=== PATIENT | male | born 1950 | race African-American/Black ===

== ENCOUNTER 2020-08-07 14:41 | Observation (INO) | payer MEDICARE, SELFPAY ==
[2020-08-07] VITALS (10 sets, daily range): BP systolic 132–170; BP diastolic 73–95; PULSE 53–77; RESP 16–20; TEMP 36.4–36.7; O2SAT 97–100; BMI 33.7
--- NOTE | ~2020-08-07 | XR_ITS ---
XR chest 2V DATE: 08/07/2020 15:55 INDICATION: Midsternal chest pain. Hypertension. TECHNIQUE: PA and lateral views COMPARISON: None FINDINGS: Approximately 12 mm nodular density overlying right mid lung, situated within the anterior segment of the right upper lobe. Comparison with prior chest radiograph dating back to July or more ye ars is recommended; if not available, CT thorax is recommended. There is mild elevation right leaf of diaphragm and mild atelectasis or infiltrate at both lung bases , right greater than left. Cardiomegaly. Aortic calcification and mild tortuosity. No hilar or mediastinal enlargement. No pleural effusion or pulmonary vascular congestion or pneumothorax. Diffuse osteopenia. IMPRESSION: 12 mm nodular density of anterior segment right upper lobe; recommend prior chest radiogr aphic comparison dating back 2 or more years. If not available, CT thorax is recommended. Mild elevation right hemidiaphragm and mild infiltrate or atelectasis at the lung bases Cardiomegaly Osteopenia Reviewed, dictated and finalized at location [facility]. IMPRESSION: 12 mm nodular density of anterior segment right upper lobe; recomme nd prior chest radiographic comparison dating back 2 or more years. If not avai lable, CT thorax is recommended. Mild elevation right hemidiaphragm and mild infiltrate or atelectasis at the karely ng bases Cardiomegaly Osteopenia
--- NOTE | ~2020-08-07 | CT_ITS ---
EXAMINATION: CTA chest PE protocol DATE: 08/07/2020 17:50 INDICATION: Chest pain TECHNIQUE: Computed tomography angiography (CTA) of the chest was performed with 100 mL Omnipaque-350 intravenous contrast timed to evaluate the pulmonary arteries. Coronal maximum intensity projection 3D-reconstructions were created by the technologist. Automated exposure control and iterative reconst ruction technique were employed. Exam dose: 867.60 mGy-cm total exam DLP. COMPARISON: 08/07/2020 PA and lateral chest FINDINGS: There is an moderate opacification the pulmonary arteries and no evidence of pulmonary embo lism. No thoracic aortic aneurysm or dissection. Normal heart size. No pericardial or pleural effusion. 1.4 cm calcified anterior segment right upper lobe pulmonary granuloma, corresponding to the nodular density noted on 08/07/2020 chest Mild primarily dependent lower lobe atelectasis is noted bilaterally. Normal morphology of the adrenal glands. Small sliding hiatal hernia. Included skeletal structures are unremarkable other than degenerative change of thoracic and lumbar s pine. IMPRESSION: 1.4 cm calcified pulmonary granuloma of anterior segment right upper lobe No evidence of pulmonary embolism Reviewed, dictated and finalized at [facility]. Reviewed, dictated and finalized at location [facility]. IMPRESSION: 1.4 cm calcified pulmonary granuloma of anterior segment right u pper lobe No evidence of pulmonary embolism
--- NOTE | 2020-08-07 14:48 | ECG_ITS ---
Measurements Intervals [place] Rate: 68 P: 3 ME: 185 QRS: 38 QRSD: 107 T: 44 QT: 405 QTc: 433 Interpretive Statements SINUS RHYTHM VOLTAGE CRITERIA FOR LVH INFERIOR INFARCT, AGE INDETERMINATE ABNORMAL ECG Electronically Signed On 08-07-2020 18:48:01 CDT by Lito Rubi D.O.
[2020-08-07 15:03] LABS: Basophils Absolute Auto 0.1 K/mm3 (0.0-0.1); Basophils Percent Auto 1.6 % (0.2-1.2); Eosinophils Absolute Auto 0.5 K/mm3 (0-0.3); Eosinophils Percent Auto 6.4 % (0-4.4); Hematocrit 43.1 % (42.0-52.0); Hemoglobin 12.7 g/dL (14.0-18.0); Immature Granulocyte Absolute 0.03 K/mm3 (0.00-0.031); Immature Granulocyte Percent A 0.4 % (0-0.5); Lymphocytes Absolute Auto 1.99 K/mm3 (0.9-3.2); Lymphocytes Percent Auto 28.3 % (18.3-44.2); Mean Corpuscular HGB Conc 29.5 g/dl (32-36); Mean Corpuscular Hemoglobin 19.5 pg (26-34); Mean Corpuscular Volume 66.1 fl (80-100); Monocytes Absolute Auto 0.8 K/mm3 (0.1-0.6); Neutrophils Absolute Auto 3.7 K/mm3 (1.3-6.7); Neutrophils Percent Auto 52.3 % (45.5-73.1); Platelet Count Result 515 k/mm3 (150-375); Red Blood Count 6.52 M/mm3 (4.6-6.20); Red Cell Distribution Width 20.7 % (11.5-14.5)
[2020-08-07 15:13] LABS: Prothrombin Time 14.2 Seconds (11.1-14.7)
[2020-08-07 15:14] LABS: Partial Thromboplastin Time 30.3 SECONDS (22.3-36.8)
[2020-08-07 15:15] LABS: Anion Gap 6 mmol/L (8-16); Blood Urea Nitrogen 17 mg/dL (9-20); Calcium 8.9 mg/dL (8.4-10.2); Carbon Dioxide 22 mmol/L (22-30); Chloride 114 mmol/L (98-107); Estimated CRCL calculation 83 ml/min; Estimated Glomerular Filt Rate > 60; Glucose 113 mg/dL (75-110); Potassium 4.1 mmol/L (3.4-5.0); Sodium 142 mmol/L (137-145)
[2020-08-07 15:24] LABS: Burr Cells 1+ (NORMAL); Ovalocytes 1+ (NORMAL); Platelet Estimate Adequate (Adequate)
[2020-08-07 15:26] LABS: Troponin I < 0.012 ng/mL (0.000-0.034)
[2020-08-07] MEDS: ASPIRIN 81 MG CHEWABLE TABLET 324 MG PO (16:24)
--- NOTE | 2020-08-07 16:24 | ED.CHESTPAIN ---
HPI - Chest Pain General Chief Complaint: Chest Pain Stated Complaint: chest pressure Time Seen by Provider: 08/07/20 16:08 Source: patient and RN notes reviewed Mode of arrival: ambulatory Limitations: no limitations History of Present Illness HPI narrative: This is a 69 year old male with history of hypertension, hyperlipidemia and peripheral vascula disease who presents for evaluation of chest pressure. He states he developed sudden onset chest pressure walking out of the gas station at around 2 hours ago. He states this pain does not radiate. It has been constant and it is associated with dizziness and intermittent shortness of breath. At his most severe intensity his pain is rated 9/10 , but it is currently 2/10. He denies nausea, vomiting, fever, cough, or diaphoresis. He denies recent history of exertional pain or shortness of breath. He denies heart disease . He had a stress tested 10 years ago that he believes was negative. Related Data Home Medications Medication Instructions Recorded Confirmed aspirin 325 mg PO DAILY 08/07/20 08/07/20 atorvastatin 20 mg PO DAILY 08/07/20 08/07/20 elderberry fruit [Elderberry] 200 mg PO DAILY 08/07/20 08/07/20 lisinopril 10 mg PO DAILY 08/07/20 08/07/20 omeprazole 20 mg PO DAILY 08/07/20 08/07/20 prasugrel 10 mg PO DAILY 08/07/20 08/07/20 psyllium husk [Metamucil] 60 g PO DAILY 08/07/20 08/07/20 Allergies Allergy/AdvReac Type Severity Reaction Status Date / Time clopidogrel [From Plavix] Allergy Hives Verified 08/07/20 14:56 ciprofloxacin AdvReac Difficulty Verified 08/07/20 16:13 Breathing metronidazole AdvReac Difficulty Verified 08/07/20 16:13 Breathing Review of Systems Review of Systems: All systems reviewed & are unremarkable except as noted in HPI and below Constitutional: Constitutional: Denies chills and Denies fever(s) Cardiovascular: Cardiovascular: Reports chest pain, Denies rapid heart rate and Reports radiating jaw, neck or arm pain Respiratory: Respiratory: Denies cough and Reports dyspnea Gastrointestinal: Gastrointestinal: Denies abdominal pain, Denies diarrhea, Denies nausea and Denies vomiting Genitourinary: Genitourinary: Denies hematuria Musculoskeletal: Musculoskeletal: Denies back pain [facility] Past Medical History Medical History (Updated 08/08/20 @ 00:58 by Shayy Grimaldo MD) Hyperlipidemia Hypertension Peripheral vascular disease Surgical History Surgical History (Updated 08/07/20 @ 16:25 by Shayy Grimaldo MD) H/O repair of rotator cuff Family History Family History (Updated 08/07/20 @ 21:27 by Elizabeth Young, RN) Mother Cancer Father Heart attack Father Diabetes mellitus Grandparent Cancer Social History Social History (Updated 08/07/20 @ 16:26 by Shayy Grimaldo MD) Smoking status: Never smoker Alcohol intake: never Substance use: never Gender identity (if verbalized by the patient): Male Spiritual care concerns: No Exam Narrative: Exam Narrative: GENERAL: Well-appearing, well-nourished, and in no acute distress. HEAD: Normocephalic, atraumatic EYES: PERRLA and EOMI, conjunctiva clear without discharge THROAT:Mucous membranes moist, Oropharynx normal without erythema, exudate, peritonsillar swelling or fluctuance NECK: Supple, without lymphadenopathy or mass RESPIRATORY: No respiratory distress, Airway patent, Respirations non-labored, Clear to auscultation without rales, rhonchi or wheeze HEART: Regular rate and rhythm. No murmur heard. Normal peripheral pulses. ABDOMEN: Soft, nontender, nondistended, normal active bowel sounds. No masses. No rebound or guarding, No organomegaly. EXTREMITIES: No edema, normal strength with full range of motion. SKIN: Warm, dry, normal color without rash NEURO: Alert and oriented x3. CN 2-12 grossly intact. No focal deficits. PSYCH: Normal mood and affect. Course Reevaluation(s) Reevaluation #1: Patient reported th
[2020-08-07] MEDS: NITROGLYCERIN SL 0.4 MG TABLET SUBLINGUAL (17:09)
[2020-08-07] MEDS: ONDANSETRON INJ 4 MG/2 ML VIAL IV PUSH (17:44)
[2020-08-07 18:25] LABS: Troponin I < 0.012 ng/mL (0.000-0.034)
--- NOTE | 2020-08-07 21:29 | ADMGEN ---
This patient, Con Gonsalves, was admitted to IMU Room 204-01. Patient/family oriented to hospital policies and general routines including ID bracelet, bed and alarms, visiting hours, pain management, procedures, bathroom and other care routines, personal items, smoking policy, room service/diet, and visiting hours. Information on how to activate the Rapid Response Team has been discussed. Patient/Family are encouraged to report perceived risks to care and to ask questions if they do not understand what they are told or what they should do. Marco A GRAY approc [id number]
[2020-08-07 21:53] LABS: Troponin I 0.072 ng/mL (0.000-0.034)
[2020-08-08] VITALS (21 sets, daily range): BP systolic 119–164; BP diastolic 74–93; PULSE 51–67; RESP 14–20; TEMP 36.2–36.6; O2SAT 95–99
--- NOTE | 2020-08-08 | ECHO_ITS ---
Patient Info Name: Con Gonsalves Age: 69 years : 1950 Gender: Male Ht: 75 in Wt: 270 lbs BSA: 2.58 m2 HR: 56 bpm BP: 139 / 85 mmHg Technical Quality: Good Exam Date: 08/08/2020 10:43 AM Exam Location: [facility] Patient Status: Inpatient Admit Date: 08/07/2020 Staff Ordering Physician: Natividad Mosley MD Quality Assurance Coach: Calvin Hill, CHAPARRITA, RT Attending Provider: Nhan Tamez MD Referring Physician: Dimitri COOPER; Exam Type: CA echo doppler color flow Study Info Indications R07.9 - Chest pain, unspecified Complete two-dimensional, color flow and Doppler transthoracic echocardiogram is performed. Summary 1. Complete two-dimensional, color flow and Doppler transthoracic echocardiogram is performed. 2. LV size is at upper limits of normal; mild LVH, normal overall LV systolic function, ejection fraction about 55%. Normal diastolic function. Normal valve structure without any significant abnormality on the Doppler. Unable to assess RVSP due to inadequate TR jet velocity. Sinus rhythm. Left Ventricle Left ventricular chamber dimension is normal. Left ventricular systolic function is normal, estimated at 55-60%. There is mildly increased left ventricular wall thickness. The left ventricular diastolic function is normal. Right Ventricle Right ventricular chamber dimension is normal. Right ventricular systolic function is normal. Left Atria Left atrial chamber dimension is normal. Right Atria Right atrial chamber dimension is normal. Aortic Valve The aortic valve is normal. There is no aortic valve stenosis. Pulmonic Valve The pulmonic valve is not well visualized. Mitral Valve The mitral valve has normal leaflets. Tricuspid Valve The tricuspid valve leaflets are normal. There is trace tricuspid valve regurgitation. Pericardium/Pleural The pericardium appears normal. Left Ventricular Outflow Tract Name Value Normal LVOT 2D LVOT Diameter 2.3 cm LVOT Doppler LVOT Peak Gradient 4 mmHg LVOT Mean Gradient 2 mmHg LVOT VTI 20 cm LVOT VTI/AV VTI Ratio 0.8 LVOT Stroke Volume 81 ml LVOT CO 5.0 l/min LVOT CI 1.9 l/min/m2 Mitral Valve Name Value Normal MV Doppler MV Decel [place] 309 cm/s2 MV PHT 66 ms MV Area (PHT) 3.4 cm2 4.0-5.0 MV Diastolic Function MV E Peak Velocity 70 cm/s MV A Peak Velocity 57 cm/s MV E/A 1.2 MV Decel Time
--- NOTE | 2020-08-08 00:49 | PM.IMHP ---
H&P: HPI History of Present Illness Date/Time: 08/08/20 00:49 Chief Complaint: Chest pain Narrative: This is a 69-year-old male with past medical history significant for hypertension, left lower extremity graft, patient is driving back to [place] from [place] when he had sudden onset of substernal chest pain is stated that was like someone sitting on his chest nonradiating he denied any diaphoresis dizziness syncope near-syncope nausea vomiting vision changes shortness of breath cough or palpitations with it. Patient decided to continue driving thought that he would pass however patient got worse and he decided to come to the emergency room. At the time of my visit patient denied any pain S states that pain lasted for roughly 1 hour since it was started till he got nitroglycerin 0.4 mg sublingual. Preliminary workup was essentially nonrevealing a CTA of the chest did not show acute pulmonary embolism. Patient CBC is significant for a hemoglobin of 12 an MCV of 60. Patient denies any other issues he has been his usual state of health. Patient has been placed on observation. Review of Systems Review of Systems: Narrative: Patient presented to the emergency room after he has sudden onset of retrosternal chest pain Constitutional: Constitutional: Denies chills, Denies fatigue, Denies fever(s), Denies lethargy, Denies malaise and Denies weakness ENT: Denies nasal congestion, Denies nasal discharge and Denies nasal obstruction Cardiovascular: Cardiovascular: Reports chest pain, Denies irregular heart rhythm, Denies claudication, Denies lightheadedness, Denies radiating jaw, neck or arm pain, Denies palpitations, Denies dyspnea, Denies dyspnea on exertion and Denies orthopnea Respiratory: Respiratory: Denies cough, Denies dyspnea and Denies wheezing Gastrointestinal: Gastrointestinal: Denies dyspepsia, Denies nausea and Denies vomiting Genitourinary: Genitourinary: Reports no additional male genitourinary complaints Musculoskeletal: Musculoskeletal: Denies back pain, Denies arthralgias, Denies joint swelling and Denies muscle weakness Integumentary/Breasts: Skin/Breast: Denies rash Neurologic: Denies focal weakness and Denies Sensory deficit (Neuro) Psychiatric: Psychiatric: Denies no additional psychiatric complaints Endocrine: Endocrine: Denies no additional endocrine complaints Hematologic/Lymphatic: Hematologic/Lymphatic: Denies no additional hematologic/lymphatic complaints Allergic/Immunologic: Allergic/Immunologic: Denies no additional allergic/immunologic complaints [facility] Past Medical History Medical History (Updated 08/08/20 @ 01:02 by Natividad Mosley MD) Hyperlipidemia Hypertension Peripheral vascular disease Surgical History Surgical History (Updated 08/07/20 @ 16:25 by Shayy Grimaldo MD) H/O repair of rotator cuff Family History Family History (Updated 08/07/20 @ 21:27 by Elizabeth Young RN) Mother Cancer Father Heart attack Father Diabetes mellitus Grandparent Cancer Social History Social History (Updated 08/07/20 @ 16:26 by Shayy Grimaldo MD) Smoking status: Never smoker Alcohol intake: never Substance use: never Gender identity (if verbalized by the patient): Male Spiritual care concerns: No Meds Home Medications and Allergies Home Medications Medication Instructions Recorded Confirmed Type aspirin 325 mg PO DAILY 08/07/20 08/07/20 History atorvastatin 20 mg PO DAILY 08/07/20 08/07/20 History elderberry fruit [Elderberry] 200 mg PO DAILY 08/07/20 08/07/20 History lisinopril 10 mg PO DAILY 08/07/20 08/07/20 History omeprazole 20 mg PO DAILY 08/07/20 08/07/20 History prasugrel 10 mg PO DAILY 08/07/20 08/07/20 History psyllium husk [Metamucil] 60 g PO DAILY 08/07/20 08/07/20 History Allergies Allergy/AdvReac Type Severity Reaction Status Date / Time clopidogrel [From Plavix] Allergy Hives Verified 08/07/20 14:56 ciprofloxacin AdvReac Difficulty Verif
[2020-08-08] MEDS: ASPIRIN 81 MG CHEWABLE TABLET PO (08:50)
[2020-08-08] MEDS: PANTOPRAZOLE 40 MG TABLET PO (08:50)
[2020-08-08] MEDS: lisinopriL 10 MG TABLET PO (08:50)
[2020-08-08] MEDS: PRASUGREL HCL 10 MG TABLET PO (08:50)
[2020-08-08] MEDS: ATORVASTATIN 20 MG TABLET PO (08:50)
--- NOTE | 2020-08-08 09:25 | PM.CNCAR ---
Assessment and Plan Assessment and plan (1) Elevated troponin: Code(s): R77.8 - Other specified abnormalities of plasma proteins Status: Acute Assessment and Plan: 69-year-old male with hypertension, dyslipidemia; history of left lower extremity sports related injuries status post left lower extremity vascular bypass surgery. patient presented to [facility] with complaints of chest pain. His EKG showed sinus rhythm, voltage criteria for LVH, no acute ST segment abnormality. First 2 sets of troponins were negative, 3rd set was minimally elevated. After discussing further diagnostic options, patient opted coronary angiogram to rule out significant obstructive CAD. 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 LVEF normal on surface echocardiogram. No intervention was deemed necessary at this time . 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 - Patient has been on prasugrel due to his vascular history ( reports allergy to clopidogrel) . At this time, continue prasugrel 10 mg daily. Add aspirin 81 mg p.o. daily . 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 b.i.d. Add beta-joe , and continue statin. Target LDL less than 70. 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 (2) Chest pain: Code(s): R07.9 - Chest pain, unspecified Status: Acute (3) HTN (hypertension): Code(s): I10 - Essential (primary) hypertension Status: Acute Assessment and Plan: Optimal blood pressure control. Target blood pressure less than 130/80 mmHg. History of Present Illness History of Present Illness Consult date/time: 08/08/20 09:25 Date of consult: 08/08/2020 Reason for consult: Chest pain Requesting physician:MD Re Chief complaint: Chest pain HPI: 69-year-old male with hypertension, dyslipidemia; history of left lower extremity sports related injuries status post left lower extremity vascular bypass surgery. Patient presented to [facility] on 08/07/2020 with complaints of chest pain. Patient lives in [place], [place]. He states that he was visiting the local area along with his . He was at a gas station, and it when he was walking out of the restroom, he felt substernal chest discomfort which was pressure-like and occasionally sharp in nature. The pain was not radiating. He had mild dizziness. He denied any associated symptoms of palpitations, shortness of breath, syncope. He was brought to the [facility] ER by his . Patient denies any prior history of clinical AR, angina, heart failure or any arrhythmias. He states that his blood pressure is usually well controlled. EKG on my personal evaluation showed sinus rhythm, voltage criteria for LVH, possible inferior infarct-age undetermined. First two sets of troponins are negative, 3rd set is minimally elevated at 0.072. Chest x-ray showed 12 mm nodular density of anterior segment right upper lobe; mild elevation right hemidiaphragm and mild infiltrate or atelectasis at the lung bases Cardiomegaly, Osteopenia. CT chest showed 1.4 cm calcified pulmonary granuloma of anterior segment right upper lobe; no evidence of pulmonary embolism. Reason For Visit: chest pain, hypertension Review of Systems Review of Systems: Narrative: General: Negative for fever, chills, fatigue Psychological: Negative for anxiety, depression Ophthalmic: negative for loss of vision ENT: Negative for epistaxis, headaches Allergy and immunology: Negative for hives, nasal congestion Hematologic and lymphatic: Negative for overt bleeding problems Endocrine: N
--- NOTE | 2020-08-08 11:41 | WPDMODSED ---
Moderate Sedation Note-Pt Data Patient Data Allergies Allergy/AdvReac Type Severity Reaction Status Date / Time clopidogrel [From Plavix] Allergy Hives Verified 08/07/20 14:56 ciprofloxacin AdvReac Difficulty Verified 08/07/20 16:13 Breathing metronidazole AdvReac Difficulty Verified 08/07/20 16:13 Breathing Home Medications Medication Instructions Recorded Confirmed Type aspirin 325 mg PO DAILY 08/07/20 08/07/20 History atorvastatin 20 mg PO DAILY 08/07/20 08/07/20 History elderberry fruit [Elderberry] 200 mg PO DAILY 08/07/20 08/07/20 History lisinopril 10 mg PO DAILY 08/07/20 08/07/20 History omeprazole 20 mg PO DAILY 08/07/20 08/07/20 History prasugrel 10 mg PO DAILY 08/07/20 08/07/20 History psyllium husk [Metamucil] 60 g PO DAILY 08/07/20 08/07/20 History Current Medications: Active Medications Aspirin (Aspirin 81 Mg Chewable Tablet) 81 mg PO DAILY@0800 [facility] Last Admin: 08/08/20 08:50 Dose: 81 mg Documented by: Atorvastatin Calcium (Atorvastatin 20 Mg Tablet) 20 mg PO DAILY [facility] Last Admin: 08/08/20 08:50 Dose: 20 mg Documented by: Acetaminophen (Ofirmev 1,000 Mg Ivpb) 1,000 mg in 100 mls @ 400 mls/hr IVPB Q6H PRN PRN Reason: Mild Pain (1-3) or Fever Stop: 08/08/20 18:36 Lisinopril (Lisinopril 10 Mg Tablet) 10 mg PO DAILY [facility] Last Admin: 08/08/20 08:50 Dose: 10 mg Documented by: (Elderberry Fruit (200 Mg Capsule)) 1 each XX DAILY [facility] Stop: 09/07/20 09:01 Ondansetron HCl (Ondansetron Inj 4 Mg/2 Ml Vial) 4 mg IV PUSH Q4H PRN PRN Reason: Nausea Pantoprazole Sodium (Pantoprazole 40 Mg Tablet) 40 mg PO QAM [facility] Last Admin: 08/08/20 08:50 Dose: 40 mg Documented by: Prasugrel (Prasugrel Hcl 10 Mg Tablet) 10 mg PO DAILY [facility] Last Admin: 08/08/20 08:50 Dose: 10 mg Documented by: Sedation/Anesthesia: No previous sedation/anesthesia problems (including family history). [facility] Past Medical History Medical History Hyperlipidemia Hypertension Peripheral vascular disease Surgical History Surgical History H/O repair of rotator cuff Family History Family History Mother Cancer Father Heart attack Father Diabetes mellitus Grandparent Cancer Social History Social History Smoking status: Never smoker Alcohol intake: never Substance use: never Gender identity (if verbalized by the patient): Male Spiritual care concerns: No Mod Sed Physical Exam Physical Exam Pre Procedural Exam: Normal: Airway Hours since solid foods: 10 Hours since liquid intake: 10 Internal Medicine - PN: Obj Da Vital Signs Vital Signs: Vital Signs - 24 hr 08/07/20 14:53 08/07/20 16:09 08/07/20 16:29 Temperature 36.7 C Pulse Rate 75 66 67 Respiratory Rate 17 17 Blood Pressure 170/88 H 164/95 H Pulse Oximetry 97 97 08/07/20 17:29 08/07/20 18:23 08/07/20 19:35 Temperature Pulse Rate 77 77 65 Respiratory Rate 20 18 18 Blood Pressure 132/81 141/76 H 144/89 H Pulse Oximetry 98 100 98 08/07/20 21:09 08/07/20 21:23 08/07/20 22:00 Temperature 36.7 C Pulse Rate 66 56 L 53 L Respiratory Rate 16 20 Blood Pressure 150/85 H 164/73 H Pulse Oximetry 99 97 08/07/20 23:31 08/08/20 00:00 08/08/20 02:00 Temperature 36.4 C Pulse Rate 58 L 62 59 L Respiratory Rate 18 Blood Pressure 139/93 H Pulse Oximetry 99 08/08/20 04:00 08/08/20 06:00 08/08/20 08:00 Temperature 36.4 C 36.6 C Pulse Rate 62 59 L 59 L Respiratory Rate 20 14 Blood Pressure 139/85 141/84 H Pulse Oximetry 97 98 08/08/20 10:00 08/08/20 11:18 Temperature 36.6 C Pulse Rate 62 58 L Respiratory Rate 16 Blood Pressure 143/74 H Pulse Oximetry 99 Intake/Output Intake/Output: Intake & Output 08/05/20 08/06/20 08/07/20 08/08/20 23:59 23:59 23:59 23:59 Intake Total
--- NOTE | 2020-08-08 12:30 | WPDCARDPROC ---
Cardiac Cath Procedure Note Date of procedure:: 08/08/20 Performing physician:: Darrick Olivarez MD Procedure Procedure note:: LEFT HEART CATHETERIZATION AND CORONARY ANGIOGRAM REPORT DATE OF PROCEDURE: 08/08/2020 INDICATION FOR PROCEDURE: chest pain, minimal troponin elevation BRIEF CLINICAL HISTORY: 69-year-old male with hypertension, dyslipidemia; history of left lower extremity sports related injuries status post left lower extremity vascular bypass surgery. Patient presented to [facility] on 08/07/2020 with complaints of chest pain. Patient lives in [place], [place]. He states that he was visiting the local area along with his . He was at a gas station, and it when he was walking out of the restroom, he felt substernal chest discomfort which was pressure-like and occasionally sharp in nature. The pain was not radiating. He had mild dizziness. He denied any associated symptoms of palpitations, shortness of breath, syncope. He was brought to the [facility] ER by his . Patient denies any prior history of clinical PA, angina, heart failure or any arrhythmias. He states that his blood pressure is usually well controlled. EKG showed sinus rhythm, voltage criteria for LVH, possible inferior infarct-age undetermined. First two sets of troponins are negative, 3rd set is minimally elevated at 0.072. Chest x-ray showed 12 mm nodular density of anterior segment right upper lobe; mild elevation right hemidiaphragm and mild infiltrate or atelectasis at the lung bases Cardiomegaly, Osteopenia. CT chest showed 1.4 cm calcified pulmonary granuloma of anterior segment right upper lobe; no evidence of pulmonary embolism. After discussing further diagnostic options, patient opted coronary angiogram to rule out significant obstructive CAD. Benefits and risks of the procedure were discussed with the patient in depth, and informed consent was obtained prior to the procedure. Risks of the procedure include but are not limited to vascular complications including groin hematoma, retroperitoneal bleed, vessel perforation; periprocedural PA, cardiac arrhythmias, stroke, contrast induced nephropathy, and . After discussing all the benefits, risks and alternatives, patient was willing to proceed with the procedure. PROCEDURES PERFORMED: 1. Selective left and right coronary angiogram 2. Moderate sedation-CPT code 57623 MODERATE SEDATION: Midazolam2 mg; fentanyl 50 mcg; Start time 1144 , Stop time 1205 ; Total [id number] time 21 minutes; Melba Rines, RN was trained observer for moderate sedation. ACCESS SITE: Right radial artery PROCEDURE NOTE: After obtaining informed consent, patient was brought to catheterization lab and prepped and draped in a usual sterile manner. After local anesthesia with lidocaine, right radial artery access was taken with micropuncture needle followed by insertion of a 5 Croatian sheath. Selective left and right coronary angiogram was performed using 5 Croatian Marina catheter. Orthogonal views were taken. Left ventriculogram was not performed. LVEF is normal on surface echocardiogram. After completion of procedure, TR band was applied for local hemostasis. Patient tolerated procedure well without any immediate procedure related complications. FINDINGS: LEFT MAIN CORONARY: The left main coronary is a large caliber, short vessel, no significant focal stenosis seen. The vessel trifurcates into LAD, ramus intermedius and left circumflex branches. LEFT ANTERIOR DESCENDING ARTERY: The LAD is a large caliber vessel in the proximal segment with aneurysmal segment in the lower part of the proximal segment; becomes tortuous in the mid segment, tapers distally and reaches LV apex. Major diagonal branch is a medium-sized vessel with 30-50% diffuse disease in the proximal segment. RAMUS INTERMEDIUS: The ramus intermedius is a medium caliber vessel with slightly hazy, eccentric about 50% stenosis in t
--- NOTE | 2020-08-08 15:15 | SUR.PHASEII ---
Pt transported back to IMU via wheelchair. Pt states the pain in right wrist is much improved to minimal pain or discomfort. Armboard in place to right arm, reviewed instructions of keeping the armboard in place for 24 hours as a reminder not to use it. When patient sat at side of bed to get into wheelchair - rash noted to be present on back. On further investigation, started to notice rash on hairline on top of head and chest. Pt denied any problems breathing or SOB, but did state he has had allergic reactions in the past after having CT scan - and was successfully treated with prednisone. I reinforced the importance of always informing the hospital or doctor of the reaction to contrast. Updated report given to Jose IMU RN - we accessed the rash present and she planned to contact the DR. at bedside.
[2020-08-08] MEDS: SODIUM CHLORIDE 0.9% IV 1,000 ML 125 ML IV CONT (15:32)
[2020-08-08] MEDS: METOPROLOL SUCCINATE EXT REL 25 MG TABCR PO (15:48)
[2020-08-08] MEDS: diphenhydrAMINE HCl CAP 25 MG CAPSULE 50 MG PO (15:49)
--- NOTE | 2020-08-08 16:58 | PM.DS ---
DS: Admitting Diagnosis Admitting Diagnosis Admitting Diagnosis: Chief Complaint: Chest pain DS: Discharge Diagnosis Discharge Diagnosis (1) Chest pain: Code(s): R07.9 - Chest pain, unspecified Status: Acute Assessment and Plan: Patient has been placed in observation Will do serial troponins EKG reviewed Supportive care A stress test in a.m. (2) HTN (hypertension): Code(s): I10 - Essential (primary) hypertension Status: Acute Assessment and Plan: Restart home meds Continue to monitor (3) Peripheral vascular disease: Code(s): I73.9 - Peripheral vascular disease, unspecified Status: Inactive Assessment and Plan: Patient is states that as a result of trauma to his left knee he was left with scarring tissue Dr. compromise blood flow to the foot patient has had two grafts performed Stable Continue to monitor DS: Summary Hospital Course Reason for hospitalization: Chief Complaint: Chest pain Narrative: This is a 69-year-old male with past medical history significant for hypertension, left lower extremity graft, patient is driving back to [place] from [place] when he had sudden onset of substernal chest pain is stated that was like someone sitting on his chest nonradiating he denied any diaphoresis dizziness syncope near-syncope nausea vomiting vision changes shortness of breath cough or palpitations with it. Patient decided to continue driving thought that he would pass however patient got worse and he decided to come to the emergency room. At the time of my visit patient denied any pain S states that pain lasted for roughly 1 hour since it was started till he got nitroglycerin 0.4 mg sublingual. Preliminary workup was essentially nonrevealing a CTA of the chest did not show acute pulmonary embolism. Patient CBC is significant for a hemoglobin of 12 an MCV of 60. Patient denies any other issues he has been his usual state of health. Patient has been placed on observation. 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 Time spent preparing discharge summary, discharge medications, discussing discharge planning with onsite case manager and patient is 35 minutes. Exam Narrative: Exam Narrative: Patient is comfortable, NAD HEENT: eyes are clear and none icteric LUNGS:CTA HEART: RR S1S2 ABD: BS+, Soft and nontender Lower extremities: no edema SKIN: nonjaundiced Neuro: grossly intact. DS: Data Data Completed and Pending Labs on day of discharge: Labs from last 24 hours 08/07/20 08/07/20 21:14 17:46 Troponin I 0.072 H* D < 0.012 Discharge Plan Discharge Attending physician on discharge: Nhan Tamez Consulting providers: ; Mohit Osorio ; Natividad Mosley V. ; Lito Rubi ; Alvino Ray ; Darrick Olivarez Discharging Clinician: Nhan Tamez Patient Disposition: Home, Self-Care Activity: as tolerated Diet: heart healthy Patient Instructions: Antibiotic Form Stand Alone Forms: General Discharge Information Follow-up/Referrals: Mohit Osorio MD [Physician] - PHYSICIAN NOT ON STAFF,NONSTAFF [Primary Care Provider] - Discharge Med
== END 2020-08-08 18:19 | disposition home or self-care (01) ==
LOC: ANHED 19:38 → ANHIMU 19:40
PROVIDERS: Emergency Medicine; Internal Medicine Cardiovascular Disease; Admitting Provider Family Medicine; Emergency Provider General Practice; Visit Provider Family Medicine
PROC: 4A023N7 Measurement of Cardiac Sampling and Pressure, Left Heart, Percutaneous Approach (ICD-10-PCS; CPT 93452; principal; 2020-08-08 11:30)
DX: R07.9 Chest pain, unspecified (principal); I73.9 Peripheral vascular disease, unspecified; I10 Essential (primary) hypertension; E78.5 Hyperlipidemia, unspecified; R06.02 Shortness of breath; R77.8 Other specified abnormalities of plasma proteins
CPT/HCPCS: 36415; 71046; 71275; 80048; 84484; 85025; 85610; 85730; 93005; 93306; 93458; 96365; 96375; 99285; A9270; C1769; C1887; C1894; G0378; J0131; J1644; J2250; J2405; J3010; J7030; J7040; Q9967